=== PATIENT | female | born 2000 | race Two or more races ===

== ENCOUNTER 2023-09-29 00:22 | Emergency (ER) | payer OTHER ==
[~2023-09-29] VITALS: Ht 160 cm; Wt 44.5 kg
[2023-09-29] MEDS ORDERED: [UNRECOGNIZED DRUG - OTHER] (00:35)
[2023-09-29] MEDS ORDERED: ACETAMINOPHEN 500 MG GEL..CAP PO STA (01:25)
[2023-09-29 02:09] LABS: HEMATOCRIT 37.4 % (36.0-45.00); HEMOGLOBIN 12.5 g/dL (12.0-15.00); MEAN CELL VOLUME 90.3 fL (80.00-100.00); MEAN CORPUSCULAR HEMOGLOBIN 30.1 pg (27.00-32.0); MEAN CORPUSCULAR HGB CONC 33.3 g/dl (32.0-36.0); PLATELET COUNT 355 K/uL (150-450); RED BLOOD COUNT 4.14 M/uL (4.00-6.00); RED CELL DISTRIBUTION WIDTH 13.8 % (11.5-14.5)
[2023-09-29 02:17] LABS: URINE APPEARANCE Clear; URINE BILIRRUBIN Negative (NEGATIVE); URINE BLOOD Negative; URINE COLOR Yellow; URINE GLUCOSE Negative (NEGATIVE); URINE LEUKOCYTE Trace; URINE NITRATE Negative; URINE PROTEIN Negative (NEGATIVE); URINE UROBILINOGEN 0.2 E.U./dl; URINE WBC 14.8 uL (0.0-23.2)
[2023-09-29 02:20] LABS: URINE RBC 1.2 uL (0.0-20.8)
[2023-09-29 02:43] LABS: CALCIUM 8.9 mg/dL (8.5-10.1); CREATININE SERUM 0.47 mg/dL (0.55-1.02); GFR 168.94; POTASSIUM 3.73 mEq/L (3.5-5.1)
== END 2023-09-29 07:13 ==
LOC: ER 00:23
PROVIDERS: General Practice
DX: O26.891 Other specified pregnancy related conditions, first trimester (principal); Z3A.01 Less than 8 weeks gestation of pregnancy; R10.2 Pelvic and perineal pain

== ENCOUNTER 2024-02-02 06:29 | Emergency (ER) | payer OTHER ==
[~2024-02-02] VITALS: Ht 167.6 cm; Wt 54.4 kg
[~2024-02-02 06:29] MED LIST: [UNRECOGNIZED DRUG - OTHER]
[2024-02-02] MEDS ORDERED: FOLIC ACID0.8 M1 PO (06:41)
[2024-02-02] MEDS ORDERED: FAMOTIDINE/PF 20 MG in 0.9 % SODIUM CHLORIDE 8 ML IV PUSH STA (08:28)
[2024-02-02] MEDS ORDERED: RINGERS SOLUTION,LACTATED 1,000 ML IV SCH (08:30)
[2024-02-02] MEDS ORDERED: ONDANSETRON HCL 2 MG/ML VIAL IV ONE (08:30)
[2024-02-02] MEDS ORDERED: ONDANSETRON HCL 2 MG/ML VIAL ONE (08:43)
[2024-02-02] MEDS ORDERED: FAMOTIDINE/PF 20 MG/2 ML VIAL ONE (08:43)
[2024-02-02 09:04] LABS: HEMATOCRIT 31.6 % (36.0-45.00); HEMOGLOBIN 10.8 g/dL (12.0-15.00); MEAN CELL VOLUME 90.5 fL (80.00-100.00); MEAN CORPUSCULAR HGB CONC 34.3 g/dl (32.0-36.0); PLATELET COUNT 310 K/uL (150-450); RED BLOOD COUNT 3.49 M/uL (4.00-6.00); RED CELL DISTRIBUTION WIDTH 14.2 % (11.5-14.5)
[2024-02-02 10:11] LABS: ALBUMIN 3.3 gm/dL (3.4-5.0); BILIRUBIN TOTAL 0.32 mg/dL (0.3-1.2); CALCIUM 8.9 mg/dL (8.5-10.1); CREATININE SERUM 0.4 mg/dL (0.55-1.02); GFR 201.49; GLOBULINA 4.3 G/DL (2.4-3.5); POTASSIUM 3.48 mEq/L (3.5-5.1); TOTAL PROTEIN 7.6 gm/dL (6.4-8.2)
[2024-02-02] MEDS ORDERED: PEPCID AC20 MG PO (10:55)
[2024-02-02] MEDS ORDERED: ONDANSETRON ODT8 MG PO (10:55)
== END 2024-02-02 11:54 | disposition home or self-care (01) ==
LOC: ER 06:29
PROVIDERS: General Practice
DX: O26.892 Other specified pregnancy related conditions, second trimester (principal); R19.7 Diarrhea, unspecified; Z3A.25 25 weeks gestation of pregnancy; Z88.6 Allergy status to analgesic agent; Z88.8 Allergy status to other drugs, medicaments and biological substances; Z20.822 Contact with and (suspected) exposure to COVID-19

== ENCOUNTER → 2024-03-08 09:14 | Outpatient (CLI) | payer OTHER ==
[~2024-03-08 09:14] MED LIST changes: +FOLIC ACID0.8 M1 PO; +ONDANSETRON ODT8 MG PO; +PEPCID AC20 MG PO
== END | disposition home or self-care (01) ==
LOC: PRENATAL 09:14
PROVIDERS: ATTEND Obstetrics & Gynecology Maternal & Fetal Medicine
DX: O26.843 Uterine size-date discrepancy, third trimester (principal); O36.8130 Decreased fetal movements, third trimester, not applicable or unspecified; O24.419 Gestational diabetes mellitus in pregnancy, unspecified control; O99.013 Anemia complicating pregnancy, third trimester; Z3A.30 30 weeks gestation of pregnancy

== ENCOUNTER 2024-03-19 20:57 | Inpatient (IN) | payer OTHER ==
[~2024-03-19] VITALS: Ht 152.4 cm; Wt 49.9 kg
[2024-03-19] MEDS ORDERED: RINGERS SOLUTION,LACTATED 1,000 ML IV SCH (21:30)
[2024-03-19 21:40] LABS: PH,URINE 7.5 (5.0-8.0); URINE APPEARANCE Clear; URINE BILIRRUBIN Negative (NEGATIVE); URINE BLOOD Negative; URINE COLOR Yellow; URINE GLUCOSE Negative (NEGATIVE); URINE KETONE Negative (NEGATIVE); URINE LEUKOCYTE Large; URINE NITRATE Negative; URINE PROTEIN Negative (NEGATIVE); URINE UROBILINOGEN 0.2 E.U./dl
[2024-03-19 21:44] LABS: URINE BACTERIA 4889.5 uL (0.0-1933); URINE EPITHELIAL CELLS 47.3 uL (0.0-38.8); URINE RBC 8.5 uL (0.0-20.8); URINE WBC 27.3 uL (0.0-23.2)
[2024-03-19 21:59] LABS: HEMATOCRIT 32.5 % (36.0-45.00); HEMOGLOBIN 10.9 g/dL (12.0-15.00); MEAN CELL VOLUME 90.2 fL (80.00-100.00); MEAN CORPUSCULAR HEMOGLOBIN 30.3 pg (27.00-32.0); MEAN CORPUSCULAR HGB CONC 33.6 g/dl (32.0-36.0); PLATELET COUNT 429 K/uL (150-450); RED CELL DISTRIBUTION WIDTH 13.5 % (11.5-14.5); URINE CAST 1.06 uL (0.0-1.40)
[2024-03-19] MEDS ORDERED: NIFEDIPINE 20 MG CAPSULE PO PRN (23:30)
[2024-03-20] MEDS ORDERED: SOD FERRIC GLUC COMPLX/SUCROSE 125 MG in 0.9 % SODIUM CHLORIDE 100 ML IV SCH (12:15)
[2024-03-20] MEDS ORDERED: BETAMETHASONE ACETATE,SOD PHOS 30 MG/5 ML ML IM SCH (12:30)
[2024-03-20] MEDS ORDERED: CEFAZOLIN SODIUM 1,000 MG in DEXTROSE 5 % IN WATER 50 ML IV SCH (17:00)
[2024-03-21] MEDS ORDERED: SOD FERRIC GLUC COMPLX/SUCROSE 62.5 MG/5 ML AMPUL IV ONE (08:12)
[2024-03-21] MEDS ORDERED: NIFEDIPINE 30 MG TAB.SA.OSM PO SCH (09:00)
[2024-03-22] MEDS ORDERED: CEFAZOLIN SODIUM 1,000 MG VIAL ONE (01:01)
== END 2024-03-23 10:16 | disposition home or self-care (01) | DRG 833 ==
LOC: OBS/DEL 20:57 → LDR 03-20 13:56 → OBS/DEL 03-20 13:56 → OB/GYN 03-22 12:20
PROVIDERS: Obstetrics & Gynecology; ADMIT Obstetrics & Gynecology; ATTEND Obstetrics & Gynecology
PROC: BU4CZZZ Ultrasonography of Uterus and Ovaries (ICD-10-PCS; principal; 2024-03-20)
PROC: BY4FZZZ Ultrasonography of Third Trimester, Single Fetus (ICD-10-PCS; 2024-03-20)
PROC: 4A1HXCZ Monitoring of Products of Conception, Cardiac Rate, External Approach (ICD-10-PCS; 2024-03-20)
DX: O60.03 Preterm labor without delivery, third trimester (principal); O26.843 Uterine size-date discrepancy, third trimester; O36.8130 Decreased fetal movements, third trimester, not applicable or unspecified; O24.410 Gestational diabetes mellitus in pregnancy, diet controlled; Z3A.32 32 weeks gestation of pregnancy; Z20.822 Contact with and (suspected) exposure to COVID-19

== ENCOUNTER 2024-03-26 22:34 | Outpatient (CLI) | payer OTHER ==
[~2024-03-26] VITALS: Ht 160 cm; Wt 49.9 kg
[2024-03-26] MEDS ORDERED: RINGERS SOLUTION,LACTATED 1,000 ML IV SCH (23:00)
[2024-03-26 23:07] LABS: URINE APPEARANCE Clear; URINE BILIRRUBIN Negative (NEGATIVE); URINE BLOOD Negative; URINE COLOR Yellow; URINE KETONE Negative (NEGATIVE); URINE LEUKOCYTE Trace; URINE NITRATE Negative; URINE PROTEIN Negative (NEGATIVE); URINE UROBILINOGEN 0.2 E.U./dl
[2024-03-26 23:10] LABS: URINE BACTERIA 180.1 uL (0.0-1933); URINE WBC 11.5 uL (0.0-23.2)
[2024-03-26 23:25] LABS: HEMATOCRIT 30.7 % (36.0-45.00); HEMOGLOBIN 10.4 g/dL (12.0-15.00); MEAN CELL VOLUME 89.2 fL (80.00-100.00); MEAN CORPUSCULAR HEMOGLOBIN 30.3 pg (27.00-32.0); PLATELET COUNT 386 K/uL (150-450); RED BLOOD COUNT 3.45 M/uL (4.00-6.00); RED CELL DISTRIBUTION WIDTH 13.9 % (11.5-14.5)
[2024-03-26 23:26] LABS: URINE GLUCOSE 250 MG/DL (NEGATIVE); URINE RBC 1.3 uL (0.0-20.8)
[2024-03-26 23:34] LABS: INR 0.94; PARTIAL THROMBOPLASTIN TIME 28.8 SECONDS (22.0-34.0); PROTHROMBIN TIME 10.3 SECONDS (9.0-11.5)
[2024-03-26 23:38] LABS: ALBUMIN 3.2 gm/dL (3.4-5.0); BILIRUBIN TOTAL 0.21 mg/dL (0.3-1.2); CALCIUM 8.8 mg/dL (8.5-10.1); CREATININE SERUM 0.42 mg/dL (0.55-1.02); GFR 190.46; GLOBULINA 3.7 G/DL (2.4-3.5); POTASSIUM 3.58 mEq/L (3.5-5.1); TOTAL PROTEIN 6.9 gm/dL (6.4-8.2)
== END 2024-03-27 10:37 | disposition home or self-care (01) ==
LOC: OBS/DEL 22:34
PROVIDERS: Specialist; ATTEND Obstetrics & Gynecology
DX: O99.013 Anemia complicating pregnancy, third trimester (principal); Z3A.33 33 weeks gestation of pregnancy

== ENCOUNTER 2024-04-17 13:26 | Inpatient (IN) | payer OTHER ==
[~2024-04-17] VITALS: Ht 162.6 cm; Wt 2.7 kg
[2024-04-17] MEDS ORDERED: AMPICILLIN SODIUM 2,000 MG VIAL IV STA (14:14)
[2024-04-17 14:30] VITALS: BP 120/81
[2024-04-17] MEDS ORDERED: PRENATAL TABLE1 EAC1 PO (15:10)
[2024-04-17] MEDS ORDERED: NIFEDIPINE ER30 MG PO (15:11)
[2024-04-17 15:24] LABS: HEMATOCRIT 36.1 % (36.0-45.00); MEAN CELL VOLUME 91.9 fL (80.00-100.00); MEAN CORPUSCULAR HEMOGLOBIN 30.6 pg (27.00-32.0); MEAN CORPUSCULAR HGB CONC 33.3 g/dl (32.0-36.0); PLATELET COUNT 348 K/uL (150-450); RED BLOOD COUNT 3.93 M/uL (4.00-6.00); RED CELL DISTRIBUTION WIDTH 15.4 % (11.5-14.5)
[2024-04-17 15:33] LABS: PH,URINE 6.5 (5.0-8.0); URINE APPEARANCE Clear; URINE BILIRRUBIN Negative (NEGATIVE); URINE BLOOD Negative; URINE COLOR Yellow; URINE GLUCOSE Negative (NEGATIVE); URINE KETONE Negative (NEGATIVE); URINE LEUKOCYTE Small; URINE NITRATE Negative; URINE PROTEIN Negative (NEGATIVE); URINE UROBILINOGEN 0.2 E.U./dl
[2024-04-17 15:35] VITALS: BP 126/69
[2024-04-17 15:36] LABS: URINE BACTERIA 1946.3 uL (0.0-1933); URINE EPITHELIAL CELLS 33.2 uL (0.0-38.8)
[2024-04-17 15:40] LABS: INR 0.94; PARTIAL THROMBOPLASTIN TIME 28.9 SECONDS (22.0-34.0); PROTHROMBIN TIME 10.3 SECONDS (9.0-11.5)
[2024-04-17 15:54] LABS: URINE RBC 1.6 uL (0.0-20.8)
[2024-04-17] MEDS ORDERED: AMPICILLIN SODIUM 1,000 MG VIAL IV SCH (17:00)
[2024-04-17] MEDS ORDERED: BETAMETHASONE ACETATE,SOD PHOS 30 MG/5 ML ML ONE (17:15)
[2024-04-17] MEDS ORDERED: BETAMETHASONE ACETATE,SOD PHOS 30 MG/5 ML ML IM ONE (17:45)
[2024-04-17 19:10] VITALS: BP 131/77
[2024-04-17 23:47] VITALS: BP 93/58
[2024-04-18 04:00] VITALS: BP 116/68
[2024-04-18 06:22] VITALS: BP 114/75; O2SAT 100
[2024-04-18] MEDS ORDERED: MISOPROSTOL 25 MCG/4 ML GEL.W.APPL ONE (07:44)
[2024-04-18] MEDS ORDERED: MISOPROSTOL 25 MCG TABLET VAG ONE (07:45)
[2024-04-18] MEDS ORDERED: MISOPROSTOL 25 MCG/4 ML GEL.W.APPL VAG ONE (10:00)
[2024-04-18 11:35] VITALS: BP 126/61
[2024-04-18] MEDS ORDERED: OXYTOCIN 500 ML IV SCH (12:30)
[2024-04-18] MEDS ORDERED: MORPHINE SULFATE 4 MG/ML CARTRIDGE IV NR (12:35)
[2024-04-18] MEDS ORDERED: MORPHINE SULFATE 4 MG/ML CARTRIDGE IV ONE (15:00)
[2024-04-18 15:39] VITALS: BP 131/76
[2024-04-18] MEDS ORDERED: BETAMETHASONE ACETATE,SOD PHOS 30 MG/5 ML ML IM NR (17:20)
[2024-04-18] MEDS ORDERED: OXYTOCIN 10 UNITS/ML VIAL ONE (18:53)
[2024-04-18] MEDS ORDERED: ERYTHROMYCIN BASE OPHT 1GM EACH TUBE OP ONE (18:54)
[2024-04-18] MEDS ORDERED: MEPERIDINE HCL/PF 50 MG/ML VIAL IM PRN (20:15)
[2024-04-18] MEDS ORDERED: PROMETHAZINE HCL 50 MG/ML AMPUL IM PRN (20:15)
[2024-04-18] MEDS ORDERED: MORPHINE SULFATE 4 MG/ML VIAL IV ONE ×2 (21:15→21:45)
[2024-04-18] MEDS ORDERED: AMPICILLIN SODIUM 1,000 MG VIAL ONE (21:22)
[2024-04-19] MEDS ORDERED: AMPICILLIN SODIUM 1,000 MG VIAL ONE (01:29)
[2024-04-19 02:20] VITALS: BP 120/83
[2024-04-19 07:11] LABS: HEMATOCRIT 29.4 % (36.0-45.00); HEMOGLOBIN 10.2 g/dL (12.0-15.00); MEAN CELL VOLUME 91.4 fL (80.00-100.00); MEAN CORPUSCULAR HEMOGLOBIN 31.6 pg (27.00-32.0); MEAN CORPUSCULAR HGB CONC 34.5 g/dl (32.0-36.0); PLATELET COUNT 294 K/uL (150-450); RED BLOOD COUNT 3.22 M/uL (4.00-6.00); RED CELL DISTRIBUTION WIDTH 15.4 % (11.5-14.5)
[2024-04-19] MEDS ORDERED: OxyCODONE HCL/APAP UD (PERCOCET) PO PRN (08:00)
[2024-04-19 08:35] VITALS: BP 125/82
[2024-04-19] MEDS ORDERED: SIMETHICONE 125 MG CAPSULE PO SCH (09:00)
[2024-04-19] MEDS ORDERED: PNV,CALCIUM 72/IRON/FOLIC ACID 1 TAB TABLET PO SCH (09:00)
[2024-04-19] MEDS ORDERED: DOCUSATE SODIUM 100MG CAP PO SCH (09:00)
[2024-04-19 13:00] VITALS: BP 120/81
[2024-04-19 18:03] VITALS: BP 121/84
[2024-04-20] VITALS: BP 122/88
[2024-04-20 08:48] VITALS: BP 112/77
[2024-04-20 16:00] VITALS: BP 113/77
[2024-04-20 20:45] VITALS: BP 123/81
[2024-04-21] VITALS: BP 115/74
[2024-04-21 08:39] VITALS: BP 113/77
== END 2024-04-21 13:54 | disposition home or self-care (01) | DRG 786 ==
LOC: LDR 13:26 → O/R 04-18 20:08 → OB/GYN 04-18 21:16
PROVIDERS: ADMIT Obstetrics & Gynecology; ATTEND Obstetrics & Gynecology
PROC: 3E0P7VZ Introduction of Hormone into Female Reproductive, Via Natural or Artificial Opening (ICD-10-PCS; 2024-04-17)
PROC: 4A1HXCZ Monitoring of Products of Conception, Cardiac Rate, External Approach (ICD-10-PCS; 2024-04-17)
PROC: 3E033VJ Introduction of Other Hormone into Peripheral Vein, Percutaneous Approach (ICD-10-PCS; 2024-04-18)
PROC: 10D00Z1 Extraction of Products of Conception, Low, Open Approach (ICD-10-PCS; principal; 2024-04-18 18:45)
DX: O33.8 Maternal care for disproportion of other origin (principal); O60.14X0 Preterm labor third trimester with preterm delivery third trimester, not applicable or unspecified; O42.113 Preterm premature rupture of membranes, onset of labor more than 24 hours following rupture, third trimester; O34.211 Maternal care for low transverse scar from previous cesarean delivery; O24.420 Gestational diabetes mellitus in childbirth, diet controlled; Z3A.36 36 weeks gestation of pregnancy; Z37.0 Single live birth; Z20.822 Contact with and (suspected) exposure to COVID-19